=== PATIENT | male | born 1940 | race Caucasian/White ===

== ENCOUNTER 2024-12-05 14:12 | Outpatient (CLI) | payer MEDICARE, BC | END 2024-12-05 14:13 | disposition home or self-care (01) | LOC: SCSRAD 14:12 | PROVIDERS: ATTEND Family Medicine | DX: M54.50 Low back pain, unspecified (principal); M25.551 Pain in right hip; M47.816 Spondylosis without myelopathy or radiculopathy, lumbar region; M47.817 Spondylosis without myelopathy or radiculopathy, lumbosacral region; M16.11 Unilateral primary osteoarthritis, right hip | CPT/HCPCS: 72100 ==